=== PATIENT | male | born 1950 ===

== ENCOUNTER → 2019-07-27 | Outpatient (CLI) | payer OTHER ==
[~2019-07-27] MED LIST: AZILECT1 MG; CARBIDOPA; NEUPRO
== END | disposition home or self-care (01) ==
LOC: RAD 14:42
DX: K94.23 Gastrostomy malfunction (principal); G20 Parkinson's disease

== ENCOUNTER 2020-03-24 12:02 | Inpatient (IN) | payer OTHER ==
[~2020-03-24] VITALS: Ht 175.3 cm; Wt 74.8 kg
[2020-03-24] MEDS ORDERED: FINASTERIDE5 MG (12:20)
[2020-03-24] MEDS ORDERED: ARICEPT10 MG (12:20)
[2020-03-24] MEDS ORDERED: ATIVAN1 M1 (12:21)
[2020-03-24] MEDS ORDERED: EFFEXOR XR37.5 MG (12:21)
[2020-03-24] MEDS ORDERED: DETROL LA4 MG (12:21)
[2020-03-26] MEDS ORDERED: ATIVAN1 M1 PO (15:14)
[2020-03-26] MEDS ORDERED: FINASTERIDE5 MG PO (15:14)
[2020-03-26] MEDS ORDERED: EFFEXOR XR37.5 MG PO (15:14)
[2020-03-26] MEDS ORDERED: DETROL LA4 MG PO (15:14)
[2020-03-26] MEDS ORDERED: SINEMET PO (15:14)
[2020-03-26] MEDS ORDERED: [UNRECOGNIZED DRUG - OTHER] PO (15:14)
[2020-03-26] MEDS ORDERED: ARICEPT10 MG PO (15:14)
== END 2020-03-26 15:44 | disposition home or self-care (01) | DRG 390 ==
LOC: ER 12:02 → SURH 22:01
PROVIDERS: ADMIT Internal Medicine; ATTEND Internal Medicine
PROC: BW21ZZZ Computerized Tomography (CT Scan) of Abdomen and Pelvis (ICD-10-PCS; principal; 2020-03-24)
DX: K56.41 Fecal impaction (principal); G20 Parkinson's disease; E86.0 Dehydration